=== PATIENT | female | born 1945 | race Caucasian/White ===

== ENCOUNTER 2017-09-12 15:34 | Emergency (ER) | payer MEDICARE, OTHER ==
[2017-09-12] MEDS ORDERED: Ibuprofen 600 MG TAB ONE (16:39)
[2017-09-12] MEDS ORDERED: Oseltamivir 75 MG CAP ONE (17:16)
== END 2017-09-12 17:18 | disposition home or self-care (01) ==
LOC: SCSER 15:34
DX: J11.1 Influenza due to unidentified influenza virus with other respiratory manifestations (principal)
CPT/HCPCS: 99283

== ENCOUNTER 2019-12-29 12:33 | Outpatient (CLI) | payer MEDICARE ==
--- NOTE | 2019-12-29 15:40 | MRI ---
MR OF THE RIGHT KNEE WITHOUT CONTRAST: 12/29/19 INDICATION: Right knee and tibia pain. COMPARISON: Right knee radiograph dated 05/25/19. FINDINGS: There is a full thickness radial tear involving the posterior root of the medial meniscus with medial extrusion. There is prominent region of subchondral cyst-like abnormality with a focal area of subar ticular plate depression involving the medial tibial plateau suspicious for a healed subchondral insu fficiency fracture. The area of central depression within the medial tibial plateau measures approxim ately 1.1 x 1.6 cm greatest mediolateral AP dimensions respectively. There is diffuse edema involving the medial tibial plateau. There is diffuse articular cartilage thinning that is full thickness invo lving the medial tibial plateau. There are areas of full thickness thinning involving the medial and central aspect of the medial femoral condyle with reactive marrow edema. There are prominent marginal osteophytes seen involving the medial femorotibial joint compartment. There is diffuse mild thinning involving the lateral femorotibial compartment. There is moderate thin chung involving the medial patellar facet with an area of full thickness thinning involving the medial patellar facet measuring 8 mm on image 26 of series 3. Marginal osteophytes are seen within the ortiz llofemoral and lateral femorotibial compartment. The MCL, ACL, PCL and LCLC are intact. The extensor mechanism is intact. The lateral meniscus is inta ct. There is a moderate sized semimembranosus/medial gastrocnemius popliteal cyst. IMPRESSION: 1. Mild to moderate osteoarthrosis of the left knee most severely affecting the patellofemoral a nd medial femorotibial compartments. There is an area of subchondral cyst-like abnormality involving the medial tibial plateau with a small area of central depression of the medial tibial plateau likely reflecting sequela of a healed subchondral insufficiency fracture. There is diffuse edema involving the medial tibial plateau with some reactive edema involving the medial femoral condyle. 2. Medial meniscal tear. POS: CET
== END 2019-12-29 12:34 | disposition home or self-care (01) ==
LOC: SCSMRI 12:33
PROVIDERS: ATTEND Family Medicine
DX: M79.661 Pain in right lower leg (principal); S83.241A Other tear of medial meniscus, current injury, right knee, initial encounter; M17.12 Unilateral primary osteoarthritis, left knee; R60.0 Localized edema